=== PATIENT | female | born 1945 | race Caucasian/White ===

== ENCOUNTER 2021-12-16 18:35 | Inpatient (IN) | payer OTHER ==
[2021-12-16 20:19] LABS: BASO % 0.4 % (0-2.0); EOS % 0.1 % (0-4.5); HEMATOCRIT 34.1 % (32.4-45.2); HEMOGLOBIN 11.4 GM/dL (10.7-15.3); LYMPH % 37.7 % (8-40); MCH 29.4 pg (25.7-33.7); MCHC 33.4 g/dl (32.0-36.0); MEAN CELL VOLUME 87.9 fl (80-96); MEAN PLT VOLUME 6.7 fl (7.5-11.1); MONO % 9.7 % (3.8-10.2); NEUT % 52.1 % (42.8-82.8); PLATELET COUNT 208 10^3/uL (134-434); RBC 3.88 M/mm3 (3.60-5.2); RDW 14.4 % (11.6-15.6)
[2021-12-16 20:39] LABS: EPI CELLS 6 /uL (0-25.1); HYALINE CASTS 0 /uL (0-3.1); URINE APPEARANCE CLEAR; URINE BACTERIA 43 /uL (0-1359); URINE BILIRUBIN NEGATIVE (NEGATIVE); URINE COLOR YELLOW; URINE GLUCOSE (UA) NEGATIVE (NEGATIVE); URINE KETONE NEGATIVE (NEGATIVE); URINE LEUK ESTERASE NEGATIVE (NEGATIVE); URINE NITRITE NEGATIVE (NEGATIVE); URINE PROTEIN NEGATIVE (NEGATIVE); URINE RBC 20 /uL (0-23.9); URINE UROBILINOGEN 0.2 mg/dL (0.2-1.0); URINE WBC 12 /uL (0-25.8)
[2021-12-16 20:43] LABS: CHLORIDE 109 mmol/L (98-107); SODIUM 145 mmol/L (136-145)
[2021-12-16 20:45] LABS: CALCIUM 8.7 mg/dL (8.5-10.1)
[2021-12-16 20:46] LABS: ALBUMIN 3.6 g/dl (3.4-5.0); BLOOD UREA NITROGEN 10.6 mg/dL (7-18); CO2 30 mmol/L (21-32); GLUCOSE,RANDOM 85 mg/dL (74-106)
[2021-12-16 20:49] LABS: CREATININE 0.9 mg/dL (0.55-1.3); SGOT/AST 35 U/L (15-37); SGPT/ALT 45 U/L (13-61)
[2021-12-16 20:50] LABS: TOT PROT 7.2 g/dl (6.4-8.2)
[2021-12-16 20:51] LABS: BILIRUBIN,TOTAL 0.5 mg/dL (0.2-1)
[2021-12-16 20:52] LABS: ALK PHOS 90 U/L (45-117)
[2021-12-16 20:54] LABS: N-TERMINAL BNP 1014.5 pg/ml (5-450)
[2021-12-16 21:03] LABS: ANION GAP 6 MMOL/L (8-16)
[2021-12-16] MEDS ORDERED: POTASSIUM CHLORIDE TABS 20 MEQ TABLET.ER (FP) PO ONE ×2 (21:07→21:11)
[2021-12-16 23:24] LABS: MAGNESIUM 1.9 mg/dL (1.8-2.4)
[2021-12-17] MEDS ORDERED: KCL 10 MEQ IVPB 30 MEQ/300 ML INFUS.BAG IVPB ONE (06:27)
[2021-12-17] MEDS: KCL 10 MEQ IVPB 10 MEQ/100 ML INFUS.BAG IVPB SCH ×3 (06:40→15:17)
[2021-12-17 06:58] LABS: BASO % 0.5 % (0-2.0); EOS % 0.1 % (0-4.5); HEMATOCRIT 34.4 % (32.4-45.2); HEMOGLOBIN 11.7 GM/dL (10.7-15.3); LYMPH % 38.1 % (8-40); MCH 29.7 pg (25.7-33.7); MCHC 34.1 g/dl (32.0-36.0); MEAN CELL VOLUME 87.2 fl (80-96); MEAN PLT VOLUME 6.5 fl (7.5-11.1); MONO % 10.1 % (3.8-10.2); NEUT % 51.2 % (42.8-82.8); PLATELET COUNT 211 10^3/uL (134-434); RBC 3.94 M/mm3 (3.60-5.2); RDW 14.2 % (11.6-15.6); WHITE BLOOD COUNT 4.4 K/mm3 (4.0-10.0)
[2021-12-17 07:16] LABS: CALCIUM 8.5 mg/dL (8.5-10.1)
[2021-12-17 07:17] LABS: MAGNESIUM 1.7 mg/dL (1.8-2.4)
[2021-12-17 07:19] LABS: ALBUMIN 3.4 g/dl (3.4-5.0); BLOOD UREA NITROGEN 7.2 mg/dL (7-18)
[2021-12-17 07:20] LABS: CREATININE 0.7 mg/dL (0.55-1.3)
[2021-12-17 07:22] LABS: PHOSPHOROUS 2.7 mg/dL (2.5-4.9)
[2021-12-17 07:23] LABS: BILIRUBIN,TOTAL 0.8 mg/dL (0.2-1)
[2021-12-17] MEDS ORDERED: POTASSIUM CHLORIDE TABS 20 MEQ TABLET.ER (FP) PO ONE ×2 (07:37→08:43)
[2021-12-17] MEDS ORDERED: ASPIRIN 81 MG CHEWABLE TABLETS ONE (08:43)
[2021-12-17] MEDS ORDERED: ENALAPRIL MALEATE 5 MG TABLET ONE (08:43)
[2021-12-17] MEDS ORDERED: ENOXAPARIN NA (PORCINE) 40 MG/0.4 ML DISP.SYRIN SQ ONE (08:44)
[2021-12-17] MEDS ORDERED: GABAPENTIN 100 MG CAPSULE ONE (08:44)
[2021-12-17] MEDS: ENOXAPARIN NA (PORCINE) 40 MG/0.4 ML DISP.SYRIN SQ SCH (09:06)
[2021-12-17] MEDS: GABAPENTIN 100 MG CAPSULE PO SCH ×2 (09:06→21:02)
[2021-12-17] MEDS: ASPIRIN 81 MG CHEWABLE TABLETS PO SCH (09:06)
[2021-12-17] MEDS: ENALAPRIL MALEATE 10 MG TABLET PO SCH (09:06)
[2021-12-17] MEDS ORDERED: MAGNESIUM SULF 50% (8.12 MEQ/2 ML-1 GM VIAL) IVPB ONE (10:43)
[2021-12-17] MEDS ORDERED: MAGNESIUM SULFATE IN WATER 2 GM/50 ML IVPB IVPB ONE (11:40)
[2021-12-17] MEDS ORDERED: LABETALOL HCL 100 MG TABLET (FP) PO ONE (15:36)
[2021-12-17 17:26] VITALS: BMI 24.5
[2021-12-17] MEDS: ATORVASTATIN CA 10 MG TABLET (FP) PO SCH (21:01)
[2021-12-18] MEDS: ENALAPRIL MALEATE 10 MG TABLET PO SCH (09:07)
[2021-12-18] MEDS: ASPIRIN 81 MG CHEWABLE TABLETS PO SCH (09:07)
[2021-12-18] MEDS: ENOXAPARIN NA (PORCINE) 40 MG/0.4 ML DISP.SYRIN SQ SCH (09:07)
[2021-12-18] MEDS: GABAPENTIN 100 MG CAPSULE PO SCH ×2 (09:07→21:34)
[2021-12-18 09:36] LABS: HEMATOCRIT 34.1 % (32.4-45.2); HEMOGLOBIN 11.6 GM/dL (10.7-15.3); MCH 29.7 pg (25.7-33.7); MEAN CELL VOLUME 87.4 fl (80-96); MEAN PLT VOLUME 6.7 fl (7.5-11.1); PLATELET COUNT 236 10^3/uL (134-434); RDW 14.2 % (11.6-15.6); WHITE BLOOD COUNT 5.2 K/mm3 (4.0-10.0)
[2021-12-18 09:58] LABS: ALBUMIN 3.5 g/dl (3.4-5.0); BLOOD UREA NITROGEN 11.3 mg/dL (7-18); MAGNESIUM 2.3 mg/dL (1.8-2.4)
[2021-12-18 10:01] LABS: CREATININE 0.8 mg/dL (0.55-1.3)
[2021-12-18 10:02] LABS: BILIRUBIN,TOTAL 0.6 mg/dL (0.2-1)
[2021-12-18] MEDS ORDERED: ENALAPRIL MALEATE 10 MG TABLET PO ONE (17:58)
[2021-12-18] MEDS: ATORVASTATIN CA 10 MG TABLET (FP) PO SCH (21:34)
[2021-12-19 07:39] LABS: BLOOD UREA NITROGEN 11.7 mg/dL (7-18); MAGNESIUM 2.1 mg/dL (1.8-2.4)
[2021-12-19 07:42] LABS: CREATININE 0.8 mg/dL (0.55-1.3); PHOSPHOROUS 2.9 mg/dL (2.5-4.9)
[2021-12-19 07:43] LABS: BILIRUBIN,TOTAL 0.5 mg/dL (0.2-1); TOT PROT 6.4 g/dl (6.4-8.2)
[2021-12-19 07:49] LABS: HEMATOCRIT 32.1 % (32.4-45.2); HEMOGLOBIN 10.9 GM/dL (10.7-15.3); MCH 29.8 pg (25.7-33.7); MEAN CELL VOLUME 87.8 fl (80-96); MEAN PLT VOLUME 6.7 fl (7.5-11.1); PLATELET COUNT 211 10^3/uL (134-434); RBC 3.65 M/mm3 (3.60-5.2); RDW 14.5 % (11.6-15.6); WHITE BLOOD COUNT 4.1 K/mm3 (4.0-10.0)
[2021-12-19] MEDS: GABAPENTIN 100 MG CAPSULE PO SCH ×2 (09:07→21:28)
[2021-12-19] MEDS: ASPIRIN 81 MG CHEWABLE TABLETS PO SCH (09:07)
[2021-12-19] MEDS: ENOXAPARIN NA (PORCINE) 40 MG/0.4 ML DISP.SYRIN SQ SCH (09:08)
[2021-12-19] MEDS ORDERED: ENALAPRIL MALEATE 10 MG TABLET PO SCH (10:00)
[2021-12-19] MEDS: ATORVASTATIN CA 10 MG TABLET (FP) PO SCH (21:28)
[2021-12-19] MEDS: CARVEDILOL 3.125 MG TABLET (FP) PO SCH (21:28)
[2021-12-19 22:42] VITALS: RESP 18
[2021-12-20 07:36] LABS: HEMATOCRIT 34.8 % (32.4-45.2); HEMOGLOBIN 11.5 GM/dL (10.7-15.3); MCH 29.3 pg (25.7-33.7); MCHC 33.2 g/dl (32.0-36.0); MEAN CELL VOLUME 88.3 fl (80-96); MEAN PLT VOLUME 6.9 fl (7.5-11.1); PLATELET COUNT 230 10^3/uL (134-434); RBC 3.94 M/mm3 (3.60-5.2); RDW 14.4 % (11.6-15.6); WHITE BLOOD COUNT 4.2 K/mm3 (4.0-10.0)
[2021-12-20] MEDS ORDERED: ENALAPRIL MALEATE 10 MG TABLET PO SCH (07:53)
[2021-12-20] MEDS ORDERED: FUROSEMIDE 40 MG/4 ML INJECTABLE VIAL IVPUSH ONE (07:53)
[2021-12-20] MEDS ORDERED: ENALAPRIL MALEATE 5 MG TABLET PO SCH (07:56)
[2021-12-20 08:03] LABS: ALBUMIN 3.4 g/dl (3.4-5.0); BLOOD UREA NITROGEN 9.6 mg/dL (7-18)
[2021-12-20 08:06] LABS: CREATININE 0.7 mg/dL (0.55-1.3)
[2021-12-20 08:07] LABS: PHOSPHOROUS 3.3 mg/dL (2.5-4.9)
[2021-12-20 08:08] LABS: BILIRUBIN,TOTAL 0.5 mg/dL (0.2-1); TOT PROT 6.9 g/dl (6.4-8.2)
[2021-12-20] MEDS: CARVEDILOL 3.125 MG TABLET (FP) PO SCH (10:35)
[2021-12-20] MEDS: ASPIRIN 81 MG CHEWABLE TABLETS PO SCH (10:35)
[2021-12-20] MEDS: ENOXAPARIN NA (PORCINE) 40 MG/0.4 ML DISP.SYRIN SQ SCH (10:35)
[2021-12-20] MEDS: GABAPENTIN 100 MG CAPSULE PO SCH (10:35)
[2021-12-20] MEDS ORDERED: FUROSEMIDE 40 MG/4 ML INJECTABLE VIAL ONE (11:10)
[2021-12-20 14:21] VITALS: BP 153/79; PULSE 71; TEMP 98
== END 2021-12-20 19:06 | disposition home or self-care (01) | DRG 948 ==
LOC: JER 18:35 → JERBED 21:30 → J4S 12-17 15:06
PROVIDERS: ADMIT Internal Medicine; ATTEND Internal Medicine
DX: R60.0 Localized edema (principal); E87.6 Hypokalemia; E78.5 Hyperlipidemia, unspecified; I10 Essential (primary) hypertension
CPT/HCPCS: 36415; 71046-TC-FY; 80053; 80061; 81003; 83036; 83735; 83880; 84100; 84439; 84443; 84484; 85025; 85027; 87086; 93005; 93010; 93306-TC; 93970-TC; 99291; 99292; C9803-CS; U0003; U0005